=== PATIENT | female | born 1945 | race Two or more races ===

== ENCOUNTER → 2019-09-02 06:58 | Outpatient (CLI) | payer OTHER ==
[~2019-09-02 06:58] MED LIST: AMBIEN10 MG PO; ESSENTIAL DAIL1 EACH PO; MEDROL4 MG PO; PLAQUENIL PO; PRILOSEC OTC20 MG PO; VIT D
== END | disposition home or self-care (01) ==
LOC: RAD 06:58 → LAB 06:58
DX: D64.89 Other specified anemias (principal); E88.89 Other specified metabolic disorders; D68.8 Other specified coagulation defects; Z22.322 Carrier or suspected carrier of Methicillin resistant Staphylococcus aureus; M85.88 Other specified disorders of bone density and structure, other site; E55.9 Vitamin D deficiency, unspecified; M81.8 Other osteoporosis without current pathological fracture; E56.1 Deficiency of vitamin K; Z76.89 Persons encountering health services in other specified circumstances; I49.8 Other specified cardiac arrhythmias

== ENCOUNTER 2019-09-09 05:25 | Day surgery (SDC) | payer OTHER | END 2019-09-09 12:35 | disposition home or self-care (01) | LOC: CIR.AMB 05:25 | DX: D21.21 Benign neoplasm of connective and other soft tissue of right lower limb, including hip (principal) ==